=== PATIENT | male | born 1940 | race African-American/Black ===

== ENCOUNTER → 2016-12-17 | Outpatient (CLI) | payer MEDICARE, OTHER ==
--- NOTE | 2016-12-17 18:49 | XCELERA REPORT ---
[address] [address] Lower Extremity Venous Evaluation Name: EMIGDIO VERA Age: 76 yrs Gender: Male : 1940 Patient Status: Outpatient Patient Location: Study Date: 12/17/2016 04:28 PM Procedure: Color flow and duplex imaging bilaterally of the veins of the lower extremities as well as the Common Femoral veins. Reason For Study: M79.06 M79.89 BLE Ordering Physician: YVONNE BARON Performed By: Ania Ryan Right Sided Venous Evaluation Normal vessel filling wall to wall, compression and augmentation as well as Colour flow down to the infrageniculate veins. Left Sided Venous Evaluation Normal vessel filling wall to wall, compression and augmentation as well as Colour flow down to the infrageniculate veins. Interpretation Summary No duplex evidence of DVT or obstruction in the bilateral lower extremities. : YVONNE BARON > Gordy Capellan
== END ==
LOC: SP 15:57
PROVIDERS: ATTEND Internal Medicine Medical Oncology
DX: M79.606 Pain in leg, unspecified (principal); M79.89 Other specified soft tissue disorders
CPT/HCPCS: 93970

== ENCOUNTER → 2017-01-26 | Outpatient (CLI) | payer MEDICARE, OTHER ==
[2017-01-26 16:24] LABS: ANION GAP 15 (5-19); BLOOD UREA NITROGEN 13 mg/dL (7-20); CALCIUM 9.1 mg/dL (8.4-10.2); CARBON DIOXIDE 23 mmol/L (22-30); CHLORIDE 109 mmol/L (98-107); CREATININE RESULT 0.97 mg/dL (0.52-1.25); GLUCOSE 128 mg/dL (75-110); POTASSIUM 4.6 mmol/L (3.6-5.0)
== END ==
LOC: OD 15:03
PROVIDERS: ATTEND Internal Medicine Geriatric Medicine
DX: R60.0 Localized edema (principal)
CPT/HCPCS: 36415; 80048

== ENCOUNTER 2017-06-22 18:34 | Inpatient (IN) | payer MEDICARE, OTHER ==
[2017-06-22 19:21] LABS: VENOUS BLOOD BASE EXCESS 0.1 mmol/L; VENOUS BLOOD HCO3 26.1 mmol/L (20-32); VENOUS BLOOD PCO2 48.6 mmHg (35-63); VENOUS BLOOD PH 7.35 (7.30-7.42)
[2017-06-22 19:27] LABS: HEMATOCRIT 25.8 % (37.9-51.0); HGB HCT DIFFERENCE -1.8; MEAN CORPUSCULAR HEMOGLOBIN 26.6 pg (27.0-33.4); MEAN CORPUSCULAR HGB CONC 31.1 g/dL (32.0-36.0); MEAN CORPUSCULAR VOLUME 86 fl (80-97); RED BLOOD COUNT 3.02 10^6/uL (4.35-5.55); RED CELL DISTRIBUTION WIDTH 24.4 % (11.5-14.0)
[2017-06-22 19:36] LABS: ALANINE AMINOTRANSFERASE 18 U/L (21-72); ALBUMIN 3.4 g/dL (3.5-5.0); ALKALINE PHOSPHATASE 816 U/L (38-126); ANION GAP 15 (5-19); ASPARTATE AMINO TRANSFERASE 28 U/L (17-59); BILIRUBIN,DIRECT 0.5 mg/dL (0.0-0.4); BILIRUBIN,TOTAL 0.6 mg/dL (0.2-1.3); BLOOD UREA NITROGEN 38 mg/dL (7-20); CALCIUM 8.5 mg/dL (8.4-10.2); CARBON DIOXIDE 24 mmol/L (22-30); CHLORIDE 106 mmol/L (98-107); CREATININE RESULT 1.68 mg/dL (0.52-1.25); GLUCOSE 190 mg/dL (75-110); POTASSIUM 4.7 mmol/L (3.6-5.0); SODIUM 145.2 mmol/L (137-145); TOTAL PROTEIN 6.8 g/dL (6.3-8.2)
[2017-06-22] MEDS ORDERED: NORMAL SALINE 1000 ML 1,000 ML IV ONE ×2 (19:38→23:15)
[2017-06-22 19:48] LABS: BASOPHILS % (MANUAL) 0 % (0-2); EOSINOPHILS % (MANUAL) 0 % (0-6); LYMPHOCYTES % (MANUAL) 39 % (13-45); NUCLEATED RED BLOOD CELLS 4 /100 WBC (0); TOTAL CELLS COUNTED 100
[2017-06-22 19:50] LABS: ANISOCYTOSIS 2+; BURR CELLS SLIGHT; HYPOCHROMASIA SLIGHT; MAGNESIUM 3.2 mg/dL (1.6-2.3); OVALOCYTES SLIGHT; PHOSPHORUS 4.7 mg/dL (2.5-4.5); POIKILOCYTOSIS 2+; POLYCHROMASIA SLIGHT; TEAR DROP CELLS 1+
--- NOTE | 2017-06-22 19:51 | ER Document Report ---
ED General - General Chief Complaint: Altered Mental Status Stated Complaint: WEAKNESS Time Seen by Provider: 06/22/17 19:10 Mode of Arrival: Stretcher Information source: Patient, Relative Cannot obtain history due to: Dementia TRAVEL OUTSIDE OF THE [place] 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 EMS gave the patient 5 mg of Haldol IM And he calmed down appropriately. Initially the patient's blood pressure was 120 systolic, But he arrived with a systolic in the 80s. Patient is alert and interactive on Initial evaluation and is cooperative. Per pt's [place] [phone], pt has a no hx of Afib. Pt is working with [facility] [phone] Dr. Elsa Stiles Pt is very hard of hearing. Pt was driving as recent as May 27, 2017. Pt has had recent constipation. - Related Data Allergies/Adverse Reactions: No Known Allergies Allergy (Unverified 10/08/15 19:40) Past Medical History - General Information source: Patient, Relative, Emergency Med Personnel Cannot obtain history due to: Altered mental status - Social History Smoking Status: Never Smoker Frequency of alcohol use: None Drug Abuse: None Lives with: Family Family History: Reviewed & Not Pertinent - Past Medical History Cardiac Medical History: Reports: Hx Hypertension Malignancy Medical History: Reports Hx Prostate Cancer - metastasized into bone Review of Systems - Review of Systems Notes: REVIEW OF SYSTEMS: CONSTITUTIONAL : Denies fever, chills, or sweats. Denies recent illness. EENT: Denies eye, ear, throat, or mouth pain or symptoms. Denies nasal or sinus congestion or discharge. Denies throat, tongue, or mouth swelling or difficulty swallowing. CARDIOVASCULAR: Denies chest pain. Denies palpitations or racing or irregular heart beat. Denies ankle edema. RESPIRATORY: Denies cough, cold, or chest congestion. Denies shortness of breath, difficulty breathing, or wheezing. GASTROINTESTINAL: Denies abdominal pain or distention. Denies nausea, vomiting , or diarrhea. Denies blood in vomitus, stools, or per rectum. Denies black, tarry stools. GENITOURINARY: Denies difficulty urinating, painful urination, burning, frequency, blood in urine, or discharge. MUSCULOSKELETAL: Denies back or neck pain or stiffness. Denies joint pain or swelling. SKIN: Denies rash, lesions or sores. HEMATOLOGIC : Denies easy bruising or bleeding. LYMPHATIC: Denies swollen, enlarged glands. NEUROLOGICAL: Denies passing out or loss of consciousness. Denies dizziness or lightheadedness. Denies headache. Denies weakness or paralysis or loss of use of either side. Denies problems with gait or speech. Denies sensory loss, numbness, or tingling. Denies seizures. PSYCHIATRIC: Denies anxiety or stress. Denies depression, suicidal ideation, or homicidal ideation. ALL OTHER SYSTEMS REVIEWED AND NEGATIVE. Dictation was performed using Dealo voice recognition software Physical Exam - Vital signs Vitals: Temp Pulse Resp BP Pulse Ox 97.7 F 124 H 20 78/58 L 98 06/22/17 18:48 06/22/17 18:48 06/22/17 18:48 06/22/17 18:48 06/22/17 18:48 - Notes Notes: PHYSICAL EXAMINATION: GENERAL: no acute distress. Patient is somewhat somnolent after receiving Haldol by EMS in route. HEAD: Atraumatic, normocephalic. EYES: Pupils equal round and reactive to light, extraocular movements intact, sclera anicteric, conjunctiva are normal. ENT: Nares patent, oropharynx clear without exudates. Dry mucous membranes. NECK: Normal range of motion, supple without lymphadenopathy LUNGS: Breath sounds clear to auscultation bilaterally and equal. No wheezes rales or rhonchi. HEART: Irregular rhythm with tachycardic rate of 115 average. There is a 1/6 systolic ejection murmur best auscultated over the apex. ABDOMEN: Soft, nontender, nondistended abdomen. No guarding, no rebound. No masses appreciated. Musculoskeletal: Normal range of motion. No cyanosis. 2+ bilateral lower extremity edema. NEUROLOGICAL: Cranial nerves grossly intact. Normal sensory, motor exams no unilateral weakness or numbness noted. Patient is extremely hard of hearing chronically, but can hear better on the right ear. He knows he is in the hospital and his name and knows the year. It is unclear if the patient is answering questions inappropriately at times due to his difficulty hearing or somnolence after Haldol. PSYCH: Somewhat flat affect. SKIN: Warm, Dry, normal turgor, no rashes or lesions noted. No skin breakdown noted. Course - Re-evaluation Re-evalutation: 06/22/17 23:49 Patient initially was hypotensive with blood pressure in the 80s systolic with atrial fibrillation rate averaging about 115. Patient was given normal saline bolus 1 L and the blood pressure recovered up to 112 systolic with a pulse rate averaging close to 110. Patient denied any complaint of pain. Chest x-ray showed no obvious evidence for congestive heart failure. Head CT showed no obvious evidence for acute intracranial Process. CT and x-ray studies did show significant bony metastatic disease. Patient had evidence for UTI on a catheterized urine specimen. Urine culture was obtained and the patient was given IV Rocephin. Guaiac was obtained and patient was heme-negative. Patient's anemia appears chronic and consistent with previous value with prior hemoglobin 8.5. Discussion was undertaken with the hospice nurse and with the family at length. The family felt unstable with the patient coming home given his previous agitation and wanted him watched in the hospital until this was under control. Likewise, hospice was concerned about the urinary tract infection and the patient's new onset of atrial fibrillation and his agitation. There was also a question raised that the patient did not have a DNR, even though he was working with hospice. I spoke with the family and the stated that the patient was to have CPR and to be shocked and intubated if he went into cardiac arrest. I spoke with the patient's oncologist Dr. Jones, who has followed the patient consistently since his diagnosis of prostate cancer. She stated that the patient had made it clear on several occasions that he did not want his family involved in his care, and he will consistently refused chemotherapy options. When I discussed this with the patient's , she stated she did not believe this. This will need to be sorted over in the morning and the DNR status needs to be clarified. - Vital Signs Vital signs: Temp Pulse Resp BP Pulse Ox 97.7 F 124 H 10 L 102/63 100 06/22/17 18:48 06/22/17 18:48 06/22/17 23:01 06/22/17 23:00 06/22/17 23:01 - Laboratory Result Diagrams: 06/22/17 19:05 06/22/17 19:05 Laboratory results interpreted by me: 06/22/17 06/22/17 06/22/17 19:05 19:05 19:05 RBC 3.02 L Hgb 8.0 L Hct 25.8 L MCH 26.6 L MCHC 31.1 L RDW 24.4 H PT 18.0 H Sodium 145.2 H BUN 38 H Creatinine 1.68 H Est GFR ( Amer) 48 L Est GFR (Non-Af Amer) 40 L Glucose 190 H POC Glucose Phosphorus Magnesium Direct Bilirubin 0.5 H ALT 18 L Alkaline Phosphatase 816 H NT-Pro-B Natriuret Pep Albumin 3.4 L Urine Protein Urine Blood Ur Leukocyte Esterase 06/22/17 06/22/17 06/22/17 19:05 19:05 19:14 RBC Hgb Hct MCH MCHC RDW PT Sodium BUN Creatinine Est GFR ( Amer) Est GFR (Non-Af Amer) Glucose POC Glucose 193 H Phosphorus 4.7 H Magnesium 3.2 H Direct Bilirubin ALT Alkaline Phosphatase NT-Pro-B Natriuret Pep 1740 H Albumin Urine Protein Urine Blood Ur Leukocyte Esterase 06/22/17 19:48 RBC Hgb Hct MCH MCHC RDW PT Sodium BUN Creatinine Est GFR ( Amer) Est GFR (Non-Af Amer) Glucose POC Glucose Phosphorus Magnesium Direct Bilirubin ALT Alkaline Phosphatase NT-Pro-B Natriuret Pep Albumin Urine Protein 30 H Urine Blood LARGE H Ur Leukocyte Esterase MODERATE H - EKG Interpretation by Me Additional EKG results interpreted by me: 06/22/17 23:48 EKG as interpreted by me showed atrial fibrillation with somewhat controlled ventricular response rate at 115. There is no old EKG available for comparison. There is no obvious evidence for acute MA or ischemia noted. Critical Care Note - Critical Care Note Total time excluding time spent on procedures (mins): 82 Discharge - Discharge Clinical Impression: Agitation, Prostate cancer metastatic to bone, Renal insufficiency Atrial fibrillation Qualifiers: Atrial fibrillation type: unspecified Qualified Code(s): I48.91 - Unspecified atrial fibrillation Urinary tract infection Qualifiers: Urinary tract infection type: acute cystitis Hematuria presence: with hematuria Qualified Code(s): N30.01 - Acute cystitis with hematuria Altered mental status Qualifiers: Altered mental status type: transient alteration of awareness Qualified Code(s) : R40.4 - Transient alteration of awareness Anemia Qualifiers: Anemia type: unspecified type Qualified Code(s): D64.9 - Anemia, unspecified Hypotension Qualifiers: Hypotension type: other hypotension type Qualified Code(s): I95.89 - Other hypotension Constipation Qualifiers: Constipation type: other constipation type Qualified Code(s): K59.09 - Other constipation Condition: Stable Disposition: ADMITTED OBSERVATION Admitting Provider: Hospitalist Unit Admitted: Telemetry Referrals: ANAND ZARCO MD [Primary Care Provider] - Follow up as needed
--- NOTE | 2017-06-22 20:08 | RADIOLOGY REPORT (SQ) ---
EXAM DESCRIPTION: CHEST SINGLE VIEW COMPLETED DATE/TIME: 06/22/2017 8:01 pm REASON FOR STUDY: Atrial fibrillation COMPARISON: 2013 EXAM PARAMETERS: NUMBER OF VIEWS: One view. TECHNIQUE: Single frontal radiographic view of the chest acquired. RADIATION DOSE: NA LIMITATIONS: None. FINDINGS: LUNGS AND PLEURA: No opacities, masses or pneumothorax. No pleural effusion. MEDIASTINUM AND HILAR STRUCTURES: No masses. Contour normal. HEART AND VASCULAR STRUCTURES: Heart normal in size. Normal vasculature. BONES: Extensive bony metastatic disease. HARDWARE: None in the chest. OTHER: No other significant finding. IMPRESSION: No acute findings. Extensive bony metastatic disease. TECHNICAL DOCUMENTATION: JOB ID: [id number]
[2017-06-22 20:11] LABS: APPEARANCE,URINE CLOUDY; BILIRUBIN,URINE NEGATIVE (NEGATIVE); GLUCOSE, URINE NEGATIVE (NEGATIVE); KETONES,URINE NEGATIVE (NEGATIVE); LEUKOCYTE ESTERASE,URINE MODERATE (NEGATIVE); NITRITE,URINE NEGATIVE (NEGATIVE); PROTEIN,URINE 30 mg/dL (NEGATIVE); URINE SPECIFIC GRAVITY 1.011; UROBILINOGEN,URINE NEGATIVE mg/dL (<2.0)
--- NOTE | 2017-06-22 20:17 | RADIOLOGY REPORT (SQ) ---
EXAM DESCRIPTION: CT HEAD WITHOUT COMPLETED DATE/TIME: 06/22/2017 8:06 pm REASON FOR STUDY: hx metastatic prostate cancer, altered mental sta COMPARISON: None. TECHNIQUE: Axial images acquired through the brain without intravenous contrast. Images reviewed wi th bone, brain and subdural windows. Images stored on PACS. All CT scanners at this facility use dose modulation, iterative reconstruction, and/or weight based d osing when appropriate to reduce radiation dose to as low as reasonably achievable (ALARA). [facility]: Dose Right [facility]: CareDose [facility]: Dose Right [facility]: Teradose 4D [facility]: [employer] RADIATION DOSE: Up-to-date CT equipment and radiation dose reduction techniques were employed. CTDIv ol: 64.6 mGy. DLP: 1163 mGy-cm. mGy. LIMITATIONS: None. FINDINGS: VENTRICLES: Normal size and contour. CEREBRUM: No masses. No hemorrhage. No midline shift. No evidence for acute infarction. Normal gra y/white matter differentiation. No areas of low density in the white matter. CEREBELLUM: No masses. No hemorrhage. No alteration of density. No evidence for acute infarction. EXTRAAXIAL SPACES: No fluid collections. No masses. ORBITS AND GLOBE: No intra- or extraconal masses. Normal contour of globe without masses. CALVARIUM: Extensive bony metastatic disease. PARANASAL SINUSES: Extensive acute and chronic sinus disease sparing the maxillary sinuses SOFT TISSUES: No mass or hematoma. OTHER: No other significant finding. IMPRESSION: No acute intracranial process. Bony metastatic disease. Extensive acute and chronic sinus disease sparing the maxillary sinuses. COMMENT: Quality ID # [id number]: Final reports with documentation of one or more dose reduction techniques (e.g., Automated exposure control, adjustment of the mA and/or kV according to patient size, use of iterative reconstruction technique) TECHNICAL DOCUMENTATION: JOB ID: [id number] [employer]- All Rights Reserved
[2017-06-22 20:26] LABS: THYROID STIMULATING HORMONE 4.33 uIU/mL (0.47-4.68)
[2017-06-22] MEDS ORDERED: CEFTRIAXONE INJ 1000 MG VIAL IV ONE (20:57)
[2017-06-22] MEDS ORDERED: IPRATROPIUM/ALBUTEROL 0.5-2.5 MG/3 ML AMPUL NEB PRN (22:52)
[2017-06-22] MEDS ORDERED: MAG HYDROX/AL HYDROX/SIMETH SUSP 30 ML UDCUP PO PRN (22:52)
[2017-06-22] MEDS ORDERED: ONDANSETRON HCL INJ/PF 4 MG/2 ML SDV IV PRN (22:52)
[2017-06-22] MEDS ORDERED: METOPROLOL TARTRATE PF/INJ 5 MG/5 ML SDV IV ONE (23:15)
[2017-06-22] MEDS ORDERED: LACTULOSE SYRUP 20 GM/30 ML UDCUP PO ONE (23:15)
--- NOTE | 2017-06-22 23:19 | EKG REPORT ---
SEVERITY:- ABNORMAL ECG - ATRIAL FLUTTER, A-RATE [address] DEPRESSION, INFERIOR LEADS BORDERLINE PROLONGED QT INTERVAL : Confirmed by: Bertha Nina 22-Jun-2017 23:18:47
--- NOTE | 2017-06-23 03:50 | PDOC H&P ---
History of Present Illness Admission Date/PCP: 06/22/17 22:52 ANAND HAROLDO Patient complains of: Altered mental status History of Present Illness: EMIGDIO VERA is a 77 year old male with a past medical history of prostate cancer with widespread metastasis receiving home hospice care who became agitated and hostile with caregivers. EMS was called administrating 5 mg of Haldol IM resulting in sedation. He was brought to the emergency room for evaluation. His blood pressure is 80 systolic in A. fib with RVR. and is unable to provide history and his resends hospice and CODE STATUS. He receives a bolus of normal saline and started on IV Cardizem and referred to the hospitalist for admission. Family stated he has denied pain but complained of constipation prior to agitation. Hospice caregiver is Yenifer at [phone], patient's oncologist Dr. Jones. Patient's Fl[place] [phone]. Past Medical History Cardiac Medical History: Reports: Hypertension Malignancy Medical History: Reports: Other - Prostate cancer Psychiatric Medical History: Denies: Depression Social History Information Source: [facility] Records Lives with: Family Smoking Status: Never Smoker Frequency of Alcohol Use: None Hx Recreational Drug Use: No Hx Prescription Drug Abuse: No - Advance Directive Resuscitation Status: Full Code Family History Family History: Reviewed & Not Pertinent Parental Family History Reviewed: Yes - Unobtainable Children Family History Reviewed: Yes - Unobtainable Sibling(s) Family History Reviewed.: Yes - Unobtainable Medication/Allergy Allergies/Adverse Reactions: No Known Allergies Allergy (Unverified 10/08/15 19:40) Review of Systems ROS unobtainable: Due to mental status Physical Exam Vital Signs: Temp Pulse Resp BP Pulse Ox 97.7 F 74 16 141/69 H 100 06/23/17 00:34 06/23/17 02:00 06/23/17 00:34 06/23/17 00:34 06/23/17 00:34 Intake & Output 06/21/17 06/22/17 06/23/17 11:59 11:59 11:59 Weight 73.1 kg General appearance: PRESENT: no acute distress, disheveled, thin, other - Chronically ill-appearing, pale, temporal wasting and cachexia Head exam: PRESENT: atraumatic, normocephalic Eye exam: PRESENT: conjunctiva pink, EOMI, PERRLA. ABSENT: scleral icterus Ear exam: PRESENT: normal external ear exam Mouth exam: PRESENT: moist, tongue midline Neck exam: ABSENT: carotid bruit, JVD, lymphadenopathy, thyromegaly Respiratory exam: PRESENT: clear to auscultation stone, crackles, decreased breath sounds. ABSENT: rales, rhonchi, wheezes Cardiovascular exam: PRESENT: irregular rhythm. ABSENT: diastolic murmur, rubs , systolic murmur Pulses: PRESENT: normal dorsalis pedis pul Vascular exam: PRESENT: normal capillary refill GI/Abdominal exam: PRESENT: normal bowel sounds, soft, other - Left lower quadrant pain no guarding. ABSENT: distended, guarding, mass, organolmegaly, rebound, tenderness Rectal exam: PRESENT: deferred Extremities exam: PRESENT: full ROM. ABSENT: calf tenderness, clubbing, pedal edema Neurological exam: PRESENT: alert, altered, awake, oriented to person, oriented to place, oriented to time, oriented to situation, CN II-XII grossly intact. ABSENT: motor sensory deficit Psychiatric exam: PRESENT: appropriate affect, normal mood. ABSENT: homicidal ideation, suicidal ideation Skin exam: PRESENT: dry, intact, warm. ABSENT: cyanosis, rash Results Impressions: Chest X-Ray 06/22/17 19:41 IMPRESSION: No acute findings. Extensive bony metastatic disease. Head CT 06/22/17 19:41 IMPRESSION: No acute intracranial process. Bony metastatic disease. Extensive acute and chronic sinus disease sparing the maxillary sinuses. Assessment & Plan - Diagnosis (1) Atrial fibrillation Qualifiers: Atrial fibrillation type: unspecified Qualified Code(s): I48.91 - Unspecified atrial fibrillation Is this a current diagnosis for this admission?: Yes Plan: IV Cardizem transition to p.o. when tolerated, not a candidate for anticoagulation given widespread metastatic disease on hospice. (2) Encephalopathy acute Is this a current diagnosis for this admission?: Yes Plan: Unclear cause possibly secondary to opiate or benzodiazepine withdrawal. Supportive measures (3) Constipation Qualifiers: Constipation type: other constipation type Qualified Code(s): K59.09 - Other constipation Is this a current diagnosis for this admission?: Yes Plan: Lactulose, enema and bowel regiment (4) Prostate cancer metastatic to bone Is this a current diagnosis for this admission?: Yes Plan: ER consulted patient's oncologist Dr. Jones strongly recommending DNR. Supportive measures, family meeting with hospice (5) Anemia Qualifiers: Anemia type: unspecified type Qualified Code(s): D64.9 - Anemia, unspecified Is this a current diagnosis for this admission?: Yes Plan: Secondary to chronic illness. - Time Time Spent: 50 to 70 Minutes - Inpatient Certification Medical Necessity: Need Close Monitoring Due to Risk of Patient Decompensation
[2017-06-23] MEDS: HEPARIN SOD (PORCINE) 5,000 UNIT/ML 1 ML SYRINGE SUBCUT SCH ×3 (05:08→21:45)
[2017-06-23 05:47] LABS: HEMATOCRIT 24.1 % (37.9-51.0); HGB HCT DIFFERENCE -1.3; MEAN CORPUSCULAR HEMOGLOBIN 27.1 pg (27.0-33.4); MEAN CORPUSCULAR HGB CONC 31.7 g/dL (32.0-36.0); MEAN CORPUSCULAR VOLUME 86 fl (80-97); RED BLOOD COUNT 2.82 10^6/uL (4.35-5.55); RED CELL DISTRIBUTION WIDTH 23.7 % (11.5-14.0); WHITE BLOOD COUNT 7.1 10^3/uL (4.0-10.5)
[2017-06-23 05:51] LABS: ANION GAP 11 (5-19); BLOOD UREA NITROGEN 35 mg/dL (7-20); CARBON DIOXIDE 24 mmol/L (22-30); CHLORIDE 113 mmol/L (98-107); CREATININE RESULT 1.31 mg/dL (0.52-1.25); GLUCOSE 92 mg/dL (75-110); POTASSIUM 4.4 mmol/L (3.6-5.0); SODIUM 148.3 mmol/L (137-145)
[2017-06-23 06:25] LABS: BASOPHILS % (MANUAL) 0 % (0-2); EOSINOPHILS % (MANUAL) 0 % (0-6); LYMPHOCYTES % (MANUAL) 22 % (13-45); TOTAL CELLS COUNTED 100
[2017-06-23 06:27] LABS: ANISOCYTOSIS 3+; HYPOCHROMASIA SLIGHT; POLYCHROMASIA SLIGHT; SCHISTOCYTES SLIGHT; TEAR DROP CELLS SLIGHT; TOXIC GRANULATION SLIGHT
--- NOTE | 2017-06-23 08:57 | Physician Advisory Note ---
Physician Advisor ProgressNote .: Pursuant to the plan for [facility], I have reviewed the medical record for this patient. Physician Advisor Statement: Please consider documentin. "Acute Kidney Injury, likely due to ____" [intravascular volume depletion? - baseline Cr 0.97] 2. ? - "Acute hypernatremia, likely due to ____" [intravascular volume depletion?] 3. 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 Medical necessity/status - see below. Status: Medicare pt, age 77, w/metastatic prostate CA. - Appropriately brought in as Outpt Obs for acute encephalopathy, new Afib w/ RVR, SARA, hypotension. - Given a 2nd IVF NS bolus, prn IV Ativan, lactulose, IV metoprolol x1, O2, cultures, po clears, [place] consult. If not sufficiently improved today for d/c, please document clinical reasons pt not safe for d/c - may then be appropriate for Inpatient status. [ "___ not back to baseline", "I am concerned about ____", ...] Thanks! CK
--- NOTE | 2017-06-23 09:34 | PDOC PROGRESS REPORT ---
Subjective Progress Note for:: 06/23/17 Subjective:: The patient is a 77-year-old -[place] gentleman with known metastatic prostate cancer. He has been residing at home with his and has been on hospice services. His oncologist is Dr. Jones. He presented to the emergency room with a several day history of altered mental status. The patient did become quite combative at home and his temporarily rescinded hospice and brought him to the hospital as she could not manage him at home. In the emergency room the patient was found to have a septic picture with hypotension, tachycardia, encephalopathy and evidence of an infection a urinary tract infection. The emergency room physician gave him 1 dose of 1 g of Rocephin. This morning when I arrived on the floor I was notified by the nursing staff that the patient had one out of 2 blood cultures that were positive for gram-negative rods. I spoke to the patient's on the phone this morning. She states that her wishes are to treat his underlying infection which is likely the cause of his encephalopathy. Once he is back to his baseline she would like to once again take him home with home hospice services. Today when I saw the patient he was asleep in the bed. He awoke quite easily. He was alert and oriented 1 and did not answer questions appropriately. According to the patient's he usually does not have any confusion. A review of systems could not be obtained. Physical Exam Vital Signs: Temp Pulse Resp BP Pulse Ox 98.5 F 80 16 123/58 L 100 06/23/17 07:15 06/23/17 07:15 06/23/17 07:15 06/23/17 07:15 06/23/17 07:15 Intake & Output 06/22/17 06/23/17 06/24/17 06:59 06:59 06:59 Intake Total 1955 Output Total 375 Balance 1580 Weight 72.1 kg General appearance: PRESENT: disheveled, hard of hearing. ABSENT: severe distress Head exam: PRESENT: atraumatic, normocephalic Mouth exam: PRESENT: dry mucosa Neck exam: ABSENT: carotid bruit, tenderness, thyromegaly Respiratory exam: PRESENT: clear to auscultation stone. ABSENT: accessory muscle use, crackles, rhonchi, wheezes Cardiovascular exam: PRESENT: RRR, +S1, +S2. ABSENT: diastolic murmur, systolic murmur GI/Abdominal exam: PRESENT: soft. ABSENT: guarding, rebound, rigid, tenderness Rectal exam: ABSENT: deferred Extremities exam: ABSENT: clubbing, pedal edema, tenderness Neurological exam: PRESENT: alert, awake, oriented to person. ABSENT: altered, oriented to time, oriented to situation Skin exam: PRESENT: dry, intact, warm Results Laboratory Results: 06/23/17 05:02 06/23/17 05:02 06/23/17 06/23/17 05:02 05:02 WBC 7.1 RBC 2.82 L Hgb 7.6 L Hct 24.1 L MCV 86 MCH 27.1 MCHC 31.7 L RDW 23.7 H Plt Count 145 L Seg Neutrophils % Not Reportable Lymphocytes % Not Reportable Monocytes % Not Reportable Eosinophils % Not Reportable Basophils % Not Reportable Absolute Neutrophils Not Reportable Absolute Lymphocytes Not Reportable Absolute Monocytes Not Reportable Absolute Eosinophils Not Reportable Absolute Basophils Not Reportable Sodium 148.3 H Potassium 4.4 Chloride 113 H Carbon Dioxide 24 Anion Gap 11 BUN 35 H Creatinine 1.31 H Est GFR ( Amer) > 60 Est GFR (Non-Af Amer) 53 L Glucose 92 Calcium 8.0 L Impressions: Chest X-Ray 06/22/17 19:41 IMPRESSION: No acute findings. Extensive bony metastatic disease. Head CT 06/22/17 19:41 IMPRESSION: No acute intracranial process. Bony metastatic disease. Extensive acute and chronic sinus disease sparing the maxillary sinuses. Assessment & Plan - Diagnosis (1) Sepsis Is this a current diagnosis for this admission?: Yes Plan: The patient had evidence of sepsis at the time of admission. He was quite hypotensive and tachycardic. He did not have a white blood cell count or fever however he is likely somewhat immunosuppressed from his underlying malignancy. He was encephalopathic with evidence of an acute kidney injury. He had evidence of a urinary tract infection at the time of admission and this morning has 1 out of 2 blood cultures positive for gram-negative rods. I am going to place the patient on some gentle hydration today. Treatment will be outlined below. (2) Gram-negative bacteremia Is this a current diagnosis for this admission?: Yes Plan: At this point the patient has 1 out of 2 blood cultures positive for gram- negative rods. Going to place the patient on ceftriaxone 2 g daily. He received 1 g of ceftriaxone in the emergency department. This is likely from a urinary source. We will follow-up with final culture results. Tomorrow we will repeat blood cultures. (3) Urinary tract infection Qualifiers: Urinary tract infection type: acute cystitis Hematuria presence: with hematuria Qualified Code(s): N30.01 - Acute cystitis with hematuria Is this a current diagnosis for this admission?: Yes Plan: The patient had evidence of a urinary tract infection at the time of admission. So far his culture is negative but he just was admitted late last night. The patient will be on ceftriaxone 2 g daily. This is the first full day of treatment. (4) Atrial fibrillation with rapid ventricular response Is this a current diagnosis for this admission?: Yes Plan: This is a new diagnosis for the patient. He converted to a sinus rhythm after a dose of IV Cardizem per the H&P. In reviewing the chart it looks like the patient received IV metoprolol. I am not exactly sure whether he received Cardizem or not. In any event he is in a sinus rhythm and rate controlled at this point. We will keep him on telemetry monitoring. This is likely due to sepsis and acute illness. (5) Prostate cancer metastatic to bone Is this a current diagnosis for this admission?: Yes Plan: I have spoken at length with the patient's . She would like to keep him home with home hospice services. She is temporarily rescinded this to bring him to the hospital. She would like to treat his underlying infection and when the patient is well and back to his baseline mentation she would like to once again take him home with home hospice services. This seems like a reasonable plan for now. He does not look like he is actively dying and I do not believe he needs to go to an inpatient hospice situation at this point. His oncologist has been consulted and we will see if she agrees with this plan. I will discuss further with her later on today. (6) Acute kidney injury Plan: The patient received several IV fluid boluses last night. His creatinine is improved this morning. This is likely due to bacteremia and poor p.o. intake. We will see with the patient's creatinine is in the morning. He was quite hypertensive at the time of admission. (7) Hypernatremia Plan: When he first presented to the hospital he had quite mild hypernatremia. This is risen somewhat this morning. I am going to place the patient on IV fluids today. He was given normal saline boluses overnight. He looks quite dry on exam. I am going to place him on half normal saline today and will check a chemistry panel in the morning. (8) Anemia Qualifiers: Anemia type: unspecified type Qualified Code(s): D64.9 - Anemia, unspecified Is this a current diagnosis for this admission?: Yes Plan: The patient has had a drop in his hemoglobin since the time of admission. His anemia is multifactorial likely secondary to his underlying malignancy as well as hemodilution. (9) Hyperglycemia Plan: Likely reactive to acute illness. (10) Constipation Qualifiers: Constipation type: other constipation type Qualified Code(s): K59.09 - Other constipation Is this a current diagnosis for this admission?: Yes Plan: The patient was complaining of constipation prior to coming into the hospital. He was given 1 dose of lactulose last night. I am going to place him on a bowel regimen with Colace and MiraLAX today. Hopefully he can have a good bowel movement soon. (11) Do not resuscitate Plan: At this point the patient remains a DO NOT RESUSCITATE. We will not perform chest compressions or intubate the patient. The patient's is requested that we treat his underlying infection. Once he is back to his baseline mentation and stable he will be discharged home on home hospice services. - Time Time Spent with patient: 35 or more minutes Disposition: When the patient is stable for discharge he will be discharged back home with home hospice services. At this point he is still acutely encephalopathic and has evidence of bacteremia likely from a urinary source. He is requiring parenteral antibiotics. We will follow up with culture results and when the patient is back to his baseline mentation and stable he will be discharged back home with home hospice services. - Inpatient Certification Medical Necessity: Need For IV Fluids, Need for IV Antibiotics
[2017-06-23] MEDS: CARVEDILOL 6.25 MG TABLET PO SCH ×2 (09:55→21:44)
[2017-06-23] MEDS: ARIPIPRAZOLE 5 MG TABLET PO SCH (09:55)
[2017-06-23] MEDS: LEVOTHYROXINE SODIUM 0.025 MG TABLET PO SCH (09:55)
[2017-06-23] MEDS: CEFTRIAXONE 2 GM/D5W RTU 2 GM/50 ML RTUPB IV SCH (09:58)
[2017-06-23] MEDS: 1/2 NORMAL SALINE 1,000 ML IV SCH (09:59)
[2017-06-23] MEDS: LORAZEPAM INJ 2 MG/1 ML VIAL IV PRN ×2 (12:51→21:44)
--- NOTE | 2017-06-23 14:48 | Physician Advisory Note ---
Physician Advisor ProgressNote .: [facility] I have reviewed the medical record for this patient. Physician Advisor Statement: Nicely documented reasoning & co-morbidities, Vero! 1. Please state either "sepsis" or "bacteremia", but not both. Coding directions indicate "bacteremia" is a mild illness/"symptom dx", while "sepsis" is a severe illness. Documenting both means honing machine set up operator tool has to query "which was it?" - If you believe pt had sepsis on adm, just state "likely GN sepsis, POA, due to UTI". [Link bacteria type to sepsis when possible.) 2. "suspected protein-calorie malnutrition [state mild, mod, or severe] with BMI 22.8, ____[?wt loss, ?appetite loss, ]" - Cachexia, temporal wasting already documented. [if possible, give specifics on intake, wt loss, loss of SQ fat & muscle mass, diminished hand vp delivery strength, & clinical importance such as (A) nutritional assessment ordered, (B) modified diet or supplements ordered, (C) additional labs ordered, (D) prolonged wound healing time, (E) delayed infxn clearance] 3. Status: Pt now appropriate to make Inpt status. For other chart reviewers: Sepsis criteria: Pt met Sepsis-3 criteria for dx sepsis, with initial total GCS 14, MAP as low as 64 giving 2 SOFA points alone. - Also had Cr 1.68, though that might have been from intravascular volume depletion. Also had plts drop from 178 to 145 by next AM. R.e. Sepsis-2 criteria: Although no leukocytosis/fever, he had HR 124, RR7, BP 78/58, acute confusion, (+)BC. Lactate was 1.4. Thanks! CK
[2017-06-23] MEDS ORDERED: CEFTRIAXONE 1 GM/D5W RTU 1 GM/50 ML RTUPB IV SCH (18:00)
[2017-06-24] MEDS: 1/2 NORMAL SALINE 1,000 ML IV SCH ×2 (03:05→20:47)
[2017-06-24] MEDS: HEPARIN SOD (PORCINE) 5,000 UNIT/ML 1 ML SYRINGE SUBCUT SCH ×3 (05:04→21:36)
[2017-06-24 08:08] LABS: HEMOGLOBIN 7.6 g/dL (13.5-17.0)
[2017-06-24] MEDS: CARVEDILOL 6.25 MG TABLET PO SCH ×2 (09:40→21:33)
[2017-06-24] MEDS: CEFTRIAXONE 2 GM/D5W RTU 2 GM/50 ML RTUPB IV SCH (09:40)
[2017-06-24] MEDS: LEVOTHYROXINE SODIUM 0.025 MG TABLET PO SCH (09:40)
[2017-06-24] MEDS: ARIPIPRAZOLE 5 MG TABLET PO SCH (09:41)
--- NOTE | 2017-06-24 14:27 | PDOC PROGRESS REPORT ---
Subjective Progress Note for:: 06/24/17 Subjective:: The patient is a 77-year-old -[place] gentleman with known metastatic prostate cancer. He has been residing at home with his and has been on hospice services. His oncologist is Dr. Jones. He presented to the emergency room with a several day history of altered mental status. The patient did become quite combative at home and his brought him to the hospital at the advice of hospice as she could not manage him at home. In the emergency room the patient was found to have a septic picture with hypotension, tachycardia, encephalopathy and evidence of an infection with a possible urinary tract infection. The emergency room physician gave him 1 dose of 1 g of Rocephin. The next morning 1 out of 2 of the patient's blood cultures was positive for gram-negative rods. His Rocephin dose was increased to 2 g daily. It was felt to be from a urinary source. This morning the patient does not fact have a positive urine culture for E. coli. He continues on IV antibiotics. Today when I saw the patient he was asleep in the bed. He was easily arousable. He was alert and oriented 1 and did not answer questions appropriately. According to the patient's he usually has some very mild confusion at home. He is not yet quite back to his baseline but getting close. A review of systems could not be obtained. Physical Exam Vital Signs: Temp Pulse Resp BP Pulse Ox 97.9 F 72 16 146/66 H 100 06/24/17 11:06 06/24/17 11:06 06/24/17 11:06 06/24/17 11:06 06/24/17 11:06 Intake & Output 06/23/17 06/24/17 06/25/17 06:59 06:59 06:59 Intake Total 2901 Output Total 300 Balance 2601 Weight 74.8 kg General appearance: PRESENT: no acute distress, hard of hearing, thin Head exam: PRESENT: atraumatic, other - Bitemporal wasting Mouth exam: PRESENT: moist Respiratory exam: PRESENT: clear to auscultation stone. ABSENT: chest wall tenderness, crackles, rales, rhonchi, wheezes Cardiovascular exam: PRESENT: RRR, +S1, +S2. ABSENT: diastolic murmur, gallop, rubs, systolic murmur GI/Abdominal exam: PRESENT: normal bowel sounds, soft. ABSENT: tenderness Extremities exam: ABSENT: calf tenderness, clubbing, pedal edema Neurological exam: PRESENT: alert. ABSENT: altered Skin exam: PRESENT: dry, warm Results Impressions: Chest X-Ray 06/22/17 19:41 IMPRESSION: No acute findings. Extensive bony metastatic disease. Head CT 06/22/17 19:41 IMPRESSION: No acute intracranial process. Bony metastatic disease. Extensive acute and chronic sinus disease sparing the maxillary sinuses. Assessment & Plan - Diagnosis (1) Sepsis Is this a current diagnosis for this admission?: Yes Plan: The patient had evidence of sepsis at the time of admission. This is a gram- negative sepsis likely due to Ecoli. He has one out of two blood cultures positive for gram negative rods. Urine culture is positive for a pansensitive Ecoli. He was quite hypotensive and tachycardic at the time of admission. He did not have a white blood cell count or fever however he is likely somewhat immunosuppressed from his underlying malignancy. He was encephalopathic with evidence of an acute kidney injury. His sepsis symptoms are improving. Repeat blood cultures will be drawn today. (2) Urinary tract infection Qualifiers: Urinary tract infection type: acute cystitis Hematuria presence: with hematuria Qualified Code(s): N30.01 - Acute cystitis with hematuria Is this a current diagnosis for this admission?: Yes Plan: The patient has an E. coli urinary tract infection which is pansensitive. He was given 1 g of IV Rocephin in the emergency room. Yesterday due to his positive blood cultures his Rocephin was increased to 2 g daily to treat his bacteremia. This is day #2 of treatment. Hopefully after the patient improves he could be transitioned over to an oral regimen in the near future and discharged back home with hospice. (3) Acute metabolic encephalopathy Is this a current diagnosis for this admission?: Yes Plan: The patients encephalopathy is improving. This is likely due to his bacteremia and urinary tract infection. We will continue current IV antibiotics. He has IV Ativan available as needed. (4) Atrial fibrillation with rapid ventricular response Is this a current diagnosis for this admission?: Yes Plan: This is a new diagnosis for the patient. He converted to a sinus rhythm after a dose of IV Cardizem per the H&P. In reviewing the chart it looks like the patient received IV metoprolol. I am not exactly sure whether he received Cardizem or not. In any event he is in a sinus rhythm and rate controlled at this point. We will keep him on telemetry monitoring. This is likely due to sepsis and acute illness. (5) Prostate cancer metastatic to bone Is this a current diagnosis for this admission?: Yes Plan: I have spoken at length with the patient's . She would like to keep him home with home hospice services. She would like to treat his underlying infection and when the patient is well and back to his baseline mentation she would like to once again take him home with home hospice services. I did speak to his hospice agency and they will take him back home his hospice services were never rescinded as they sent him to the hospital. They are in agreement with this plan and he will resume home hospice services at discharge. This seems like a reasonable plan for now. He does not look like he is actively dying and I do not believe he needs to go to an inpatient hospice situation at this point. (6) Acute kidney injury Plan: The patient received several IV fluid boluses last night. His creatinine is improved this morning. This is likely due to bacteremia, urinary tract infection and poor p.o. intake. We will see with the patient's creatinine is in the morning. He was quite hypertensive at the time of admission. (7) Hypernatremia Plan: When he first presented to the hospital he had quite mild hypernatremia. This christen somewhat the next day. The patient is receiving IV fluids and he will have a chemistry panel in the morning. (8) Anemia Qualifiers: Anemia type: unspecified type Qualified Code(s): D64.9 - Anemia, unspecified Is this a current diagnosis for this admission?: Yes Plan: The patient has had a drop in his hemoglobin since the time of admission. His anemia is multifactorial likely secondary to his underlying malignancy as well as hemodilution. Will repeat labs in the morning. (9) Hyperglycemia Plan: Likely reactive to acute illness. (10) Constipation Qualifiers: Constipation type: other constipation type Qualified Code(s): K59.09 - Other constipation Is this a current diagnosis for this admission?: Yes Plan: The patient was complaining of constipation prior to coming into the hospital. He was given 1 dose of lactulose at admission. He has been placed on a bowel regimen with Colace and MiraLAX today. Hopefully he can have a good bowel movement soon. (11) Electrolyte abnormality Plan: The patient has hypermagnesemia and hyperphosphatemia. We will recheck these levels in the morning. Possibly due to his acute kidney injury. - Time Time Spent with patient: 25-34 minutes Anticipated discharge: Hospice - Inpatient Certification Medical Necessity: Need For IV Fluids, Need for IV Antibiotics, Other - Inpatient hospitalization remains necessary. We need the patient's blood cultures to finalize. He had a septic picture at the time of admission and I would like for him to have a couple of days of IV antibiotics. Ultimately he could be transitioned over to an oral regimen when he improves. When he does go home he will resume home hospice services. I have spoken to his hospice agency and they are in agreement with this plan.
[2017-06-24] MEDS ORDERED: DOCUSATE SODIUM 100 MG CAPSULE PO ONE (15:00)
[2017-06-24] MEDS: DOCUSATE SODIUM 100 MG CAPSULE PO SCH (18:03)
[2017-06-25 05:05] LABS: HEMATOCRIT 23.2 % (37.9-51.0); HGB HCT DIFFERENCE -0.7; MEAN CORPUSCULAR HEMOGLOBIN 26.7 pg (27.0-33.4); MEAN CORPUSCULAR HGB CONC 32.2 g/dL (32.0-36.0); MEAN CORPUSCULAR VOLUME 83 fl (80-97); RED CELL DISTRIBUTION WIDTH 23.4 % (11.5-14.0); WHITE BLOOD COUNT 7.6 10^3/uL (4.0-10.5)
[2017-06-25 05:18] LABS: HEMOGLOBIN 7.5 g/dL (13.5-17.0)
[2017-06-25 05:26] LABS: ANION GAP 12 (5-19); BLOOD UREA NITROGEN 13 mg/dL (7-20); CALCIUM 7.9 mg/dL (8.4-10.2); CARBON DIOXIDE 22 mmol/L (22-30); CHLORIDE 111 mmol/L (98-107); CREATININE RESULT 0.79 mg/dL (0.52-1.25); GLUCOSE 108 mg/dL (75-110); MAGNESIUM 2.3 mg/dL (1.6-2.3); POTASSIUM 3.2 mmol/L (3.6-5.0); SODIUM 144.9 mmol/L (137-145)
[2017-06-25 05:31] LABS: BASOPHILS % (MANUAL) 0 % (0-2); EOSINOPHILS % (MANUAL) 0 % (0-6); LYMPHOCYTES % (MANUAL) 29 % (13-45); TOTAL CELLS COUNTED 100
[2017-06-25 05:35] LABS: HYPOCHROMASIA SLIGHT; POLYCHROMASIA SLIGHT
[2017-06-25 05:36] LABS: ANISOCYTOSIS 3+; OVALOCYTES SLIGHT; POIKILOCYTOSIS SLIGHT; TEAR DROP CELLS SLIGHT
[2017-06-25] MEDS: HEPARIN SOD (PORCINE) 5,000 UNIT/ML 1 ML SYRINGE SUBCUT SCH ×3 (05:45→21:35)
[2017-06-25] MEDS: ARIPIPRAZOLE 5 MG TABLET PO SCH (09:05)
[2017-06-25] MEDS: CEFTRIAXONE 2 GM/D5W RTU 2 GM/50 ML RTUPB IV SCH (09:05)
[2017-06-25] MEDS: CARVEDILOL 6.25 MG TABLET PO SCH ×2 (09:05→21:49)
[2017-06-25] MEDS: LEVOTHYROXINE SODIUM 0.025 MG TABLET PO SCH (09:05)
[2017-06-25] MEDS: POLYETHYLENE GLYCOL 3350 POWDER 17 GM/1 PACKET PO SCH (09:08)
[2017-06-25] MEDS: DOCUSATE SODIUM 100 MG CAPSULE PO SCH ×2 (09:08→17:17)
[2017-06-25] MEDS: 1/2 NORMAL SALINE 1,000 ML IV SCH ×2 (09:12→23:01)
--- NOTE | 2017-06-25 10:13 | PDOC PROGRESS REPORT ---
Subjective Progress Note for:: 06/25/17 - Hospital day 2 Subjective:: The patient is a 77-year-old -[place] gentleman with known metastatic prostate cancer. He has been residing at home with his and has been on hospice services. His oncologist is Dr. Jones. He presented to the emergency room June 23, 2017 with a several day history of altered mental status. The patient did become quite combative at home. His brought him to the hospital at the advice of hospice as she could not manage him at home. In the emergency room the patient was found to have a septic picture with hypotension, tachycardia, encephalopathy and evidence of a urinary tract infection. The emergency room physician gave him 1 dose of 1 g of Rocephin. Hospital day number 1, 1 of 2 of the patient's blood cultures was positive for gram-negative rods. His Rocephin dose was increased to 2 g daily. His urine cultures are growing E. coli. Blood cultures are also growing E. coli, pansensitive. Today, he is sleeping but easily arousable. He is alert and oriented x1. He states that he has gout. A review of systems cannot be obtained. Physical Exam Vital Signs: Temp Pulse Resp BP Pulse Ox 98.2 F 61 16 135/63 H 100 06/25/17 07:22 06/25/17 08:04 06/25/17 08:04 06/25/17 07:22 06/25/17 08:04 Intake & Output 06/24/17 06/25/17 06/26/17 06:59 06:59 06:59 Intake Total 2901 2911 Output Total 300 Balance 2601 2911 Weight 74.8 kg General appearance: PRESENT: no acute distress, cooperative, thin Head exam: PRESENT: atraumatic, normocephalic Eye exam: PRESENT: conjunctiva pink, EOMI, PERRLA. ABSENT: scleral icterus Mouth exam: PRESENT: moist, neck supple Neck exam: PRESENT: full ROM. ABSENT: JVD, meningismus Respiratory exam: PRESENT: clear to auscultation stone, symmetrical, unlabored. ABSENT: accessory muscle use Cardiovascular exam: PRESENT: RRR GI/Abdominal exam: PRESENT: hypoactive bowel sounds, soft. ABSENT: tenderness Extremities exam: ABSENT: calf tenderness, joint swelling Musculoskeletal exam: PRESENT: normal inspection Neurological exam: PRESENT: awake, oriented to person, CN II-XII grossly intact Skin exam: PRESENT: dry, intact, warm. ABSENT: cyanosis, rash Results Laboratory Results: 06/25/17 04:16 06/25/17 04:16 06/25/17 06/25/17 04:16 04:16 WBC 7.6 RBC 2.80 L Hgb 7.5 L Hct 23.2 L MCV 83 MCH 26.7 L MCHC 32.2 RDW 23.4 H Plt Count 126 L Seg Neutrophils % Not Reportable Lymphocytes % Not Reportable Monocytes % Not Reportable Eosinophils % Not Reportable Basophils % Not Reportable Absolute Neutrophils Not Reportable Absolute Lymphocytes Not Reportable Absolute Monocytes Not Reportable Absolute Eosinophils Not Reportable Absolute Basophils Not Reportable Sodium 144.9 Potassium 3.2 L Chloride 111 H Carbon Dioxide 22 Anion Gap 12 BUN 13 Creatinine 0.79 Est GFR ( Amer) > 60 Est GFR (Non-Af Amer) > 60 Glucose 108 Calcium 7.9 L Magnesium 2.3 Impressions: Chest X-Ray 06/22/17 19:41 IMPRESSION: No acute findings. Extensive bony metastatic disease. Head CT 06/22/17 19:41 IMPRESSION: No acute intracranial process. Bony metastatic disease. Extensive acute and chronic sinus disease sparing the maxillary sinuses. Assessment & Plan - Diagnosis (1) Acute kidney injury Is this a current diagnosis for this admission?: Yes Plan: At the time of admission, he received several IV fluid boluses. His creatinine improved within 24 hours. His acute kidney injury was likely due to volume depletion in the setting of a urinary tract infection, and decreased oral intake. (2) Acute metabolic encephalopathy Is this a current diagnosis for this admission?: Yes Plan: His encephalopathy is improving. It is likely due to the urinary tract infection, compounded by acute kidney injury, and decreased p.o. intake. (3) Anemia Qualifiers: Anemia type: unspecified type Qualified Code(s): D64.9 - Anemia, unspecified Is this a current diagnosis for this admission?: Yes Plan: His anemia is multifactorial, likely secondary to his underlying malignancy as well as hemodilution. No obvious bleeding. Transfuse if the hemoglobin is less than 7. (4) Atrial fibrillation with rapid ventricular response Is this a current diagnosis for this admission?: Yes Plan: This is a new diagnosis for the patient. He converted to sinus rhythm after a dose of IV metoprolol given at the time of admission. This is most likely due to his acute illness. Continue telemetry monitoring for now. (5) Gram-negative bacteremia Is this a current diagnosis for this admission?: Yes Plan: Currently his blood culture is growing E. coli. It is pansensitive to multiple antibiotics. Currently he is on ceftriaxone 2 g IV daily. At this point, he has not had an there is reaction to ceftriaxone. Because his mental status is not quite back to baseline, I will continue ceftriaxone for now. (6) Prostate cancer metastatic to bone Is this a current diagnosis for this admission?: Yes (7) Sepsis Is this a current diagnosis for this admission?: Yes Plan: Secondary to E. coli urinary tract infection. Continue ceftriaxone 2 g IV daily (8) Urinary tract infection Qualifiers: Urinary tract infection type: acute cystitis Hematuria presence: with hematuria Qualified Code(s): N30.01 - Acute cystitis with hematuria Is this a current diagnosis for this admission?: Yes Plan: Continue ceftriaxone 2 g IV daily. Today is antibiotic day #3 (9) Hypokalemia Is this a current diagnosis for this admission?: Yes Plan: KCl 40 mEq by mouth Q6Hr x2. repeat BMP in a.m. (10) Thrombocytopenia Is this a current diagnosis for this admission?: Yes Plan: Perhaps due to sepsis. No signs of bleeding. Continue to monitor for now. - Time Time Spent with patient: 25-34 minutes Medications reviewed and adjusted accordingly: Yes Anticipated discharge: Home with Homehealth, Hospice Within: within 48 hours - Inpatient Certification Based on my medical assessment, after consideration of the patient's comorbidities, presenting symptoms, or acuity I expect that the services needed warrant INPATIENT care.: Yes I certify that my determination is in accordance with my understanding of Medicare's requirements for reasonable and necessary INPATIENT services [42 CFR 412.3e].: Yes Medical Necessity: Need For Continuous Telemetry Monitoring, Need for IV Antibiotics
[2017-06-25] MEDS: POTASSIUM CHLORIDE 10 MEQ TABLET.SA PO SCH ×2 (11:30→17:16)
--- NOTE | 2017-06-25 12:43 | Physician Advisory Note ---
Physician Advisor ProgressNote .: Pursuant to the plan for [facility], I have reviewed the medical record for this patient. Physician Advisor Statement: Please consider documentin. "Sepsis, due to E.coli UTI, present on admission" 2. Please list Principal Dx (the one that made pt need to come in) as Dx #1 in all notes. Thanks! MD Debo [phone]
[2017-06-25] MEDS: LORAZEPAM INJ 2 MG/1 ML VIAL IV PRN (23:01)
[2017-06-26] MEDS: HEPARIN SOD (PORCINE) 5,000 UNIT/ML 1 ML SYRINGE SUBCUT SCH ×3 (05:42→21:21)
[2017-06-26 06:30] LABS: HEMATOCRIT 25.4 % (37.9-51.0); HEMOGLOBIN 8.1 g/dL (13.5-17.0); HGB HCT DIFFERENCE -1.1; MEAN CORPUSCULAR HEMOGLOBIN 26.9 pg (27.0-33.4); MEAN CORPUSCULAR HGB CONC 31.9 g/dL (32.0-36.0); MEAN CORPUSCULAR VOLUME 84 fl (80-97); RED BLOOD COUNT 3.01 10^6/uL (4.35-5.55); WHITE BLOOD COUNT 7.1 10^3/uL (4.0-10.5)
[2017-06-26 06:44] LABS: ANION GAP 13 (5-19); BLOOD UREA NITROGEN 9 mg/dL (7-20); CALCIUM 8.4 mg/dL (8.4-10.2); CARBON DIOXIDE 19 mmol/L (22-30); CHLORIDE 110 mmol/L (98-107); CREATININE RESULT 0.74 mg/dL (0.52-1.25); GLUCOSE 72 mg/dL (75-110); POTASSIUM 4.1 mmol/L (3.6-5.0); SODIUM 141.6 mmol/L (137-145)
[2017-06-26] MEDS: DOCUSATE SODIUM 100 MG CAPSULE PO SCH ×2 (09:48→17:16)
[2017-06-26] MEDS: ARIPIPRAZOLE 5 MG TABLET PO SCH (09:49)
[2017-06-26] MEDS: CARVEDILOL 6.25 MG TABLET PO SCH ×2 (09:50→21:20)
[2017-06-26] MEDS: CEFTRIAXONE 2 GM/D5W RTU 2 GM/50 ML RTUPB IV SCH (09:50)
[2017-06-26] MEDS: LEVOTHYROXINE SODIUM 0.025 MG TABLET PO SCH (09:50)
[2017-06-26] MEDS: POLYETHYLENE GLYCOL 3350 POWDER 17 GM/1 PACKET PO SCH (09:50)
[2017-06-26] MEDS: LORAZEPAM INJ 2 MG/1 ML VIAL IV PRN (14:24)
--- NOTE | 2017-06-26 15:33 | PDOC PROGRESS REPORT ---
Subjective Progress Note for:: 06/26/17 Subjective:: The patient is a 77-year-old -[place] gentleman with known metastatic prostate cancer. He has been residing at home with his and has been on hospice services. His oncologist is Dr. Jones. He presented to the emergency room June 23, 2017 with a several day history of altered mental status. The patient did become quite combative at home. His brought him to the hospital at the advice of hospice as she could not manage him at home. In the emergency room the patient was found to have a septic picture with hypotension, tachycardia, encephalopathy and evidence of a urinary tract infection. The emergency room physician gave him 1 dose of 1 g of Rocephin. Hospital day number 1, 1 of 2 of the patient's blood cultures was positive for gram-negative rods. His Rocephin dose was increased to 2 g daily. His urine cultures are growing E. coli. Blood culture is also growing E. coli, pansensitive. Today, the patient has had increasing agitation. Apparently, this started earlier this morning around the change of shift. The nurse reported that some students were attempting to give the patient his medications and he became very agitated. The nurse thinks that there was too much stimulation with the number of people in the room at that time. However, the nurse also reports that the patient was belligerent with her and threatening. Physical Exam Vital Signs: Temp Pulse Resp BP Pulse Ox 97.7 F 75 18 147/63 H 99 06/26/17 11:19 06/26/17 14:00 06/26/17 11:19 06/26/17 11:19 06/26/17 11:19 Intake & Output 06/25/17 06/26/17 06/27/17 06:59 06:59 06:59 Intake Total 2911 2405 50 Balance 2911 2405 50 Weight 74.83 kg General appearance: PRESENT: no acute distress Head exam: PRESENT: atraumatic Respiratory exam: PRESENT: clear to auscultation stone Cardiovascular exam: PRESENT: RRR GI/Abdominal exam: PRESENT: normal bowel sounds, soft Rectal exam: PRESENT: deferred Additional comments: The patient had just received a sedative. He had just fallen asleep. I did not wake up the patient based on the agitation that he has been displaying today. His skin was warm dry and intact. I did not appreciate any lesions or rashes. The extremities were without edema. Results Laboratory Results: 06/26/17 05:37 06/26/17 05:37 06/26/17 06/26/17 05:37 05:37 WBC 7.1 RBC 3.01 L Hgb 8.1 L Hct 25.4 L MCV 84 MCH 26.9 L MCHC 31.9 L RDW 24.0 H Plt Count 127 L Sodium 141.6 Potassium 4.1 Chloride 110 H Carbon Dioxide 19 L Anion Gap 13 BUN 9 Creatinine 0.74 Est GFR ( Amer) > 60 Est GFR (Non-Af Amer) > 60 Glucose 72 L Calcium 8.4 Impressions: Chest X-Ray 06/22/17 19:41 IMPRESSION: No acute findings. Extensive bony metastatic disease. Head CT 06/22/17 19:41 IMPRESSION: No acute intracranial process. Bony metastatic disease. Extensive acute and chronic sinus disease sparing the maxillary sinuses. Assessment & Plan - Diagnosis (1) Sepsis Is this a current diagnosis for this admission?: Yes Plan: The patient presented with sepsis from a urinary tract infection. Sepsis was present on admission. Today is antibiotic day #4 with 2 g of Rocephin daily. (2) Acute kidney injury Is this a current diagnosis for this admission?: Yes Plan: Likely associated with critical illness and volume status upon admission. Resolved. (3) Atrial fibrillation with rapid ventricular response Is this a current diagnosis for this admission?: Yes Plan: The patient converted to sinus rhythm after receiving metoprolol in the emergency department. Will continue on telemetry monitoring. (4) Encephalopathy acute Is this a current diagnosis for this admission?: Yes Plan: This is likely from underlying sepsis and infection. However, the patient does have metastatic prostate cancer. We have to be aware that he could have additional metastases to the brain. At this point time I do not think that pursuing a diagnostic workup would be of benefit because it will not frame changer. At this point time the biggest problem is disposition. The cannot take care of the patient at home because he is belligerent and taking him home right now would risk his health and her health. We are trying to get additional services for home. If the patient does improve and becomes more appropriate we will discharge him back to hospice. He may require inpatient hospice. (5) Gram-negative bacteremia Is this a current diagnosis for this admission?: Yes Plan: Continue Rocephin. Today is day #4. Patient will require 10 days of antibiotics. (6) Thrombocytopenia Is this a current diagnosis for this admission?: Yes (7) Urinary tract infection Qualifiers: Urinary tract infection type: acute cystitis Hematuria presence: with hematuria Qualified Code(s): N30.01 - Acute cystitis with hematuria Is this a current diagnosis for this admission?: Yes Plan: Plan is as above under sepsis and bacteremia. - Time Time Spent with patient: 25-34 minutes Critical Time spent with patient: 25-34 minutes - Inpatient Certification Medical Necessity: Need Close Monitoring Due to Risk of Patient Decompensation, Need for IV Antibiotics, Risk of Complication if Not Cared For in Hospital
[2017-06-27] MEDS: HEPARIN SOD (PORCINE) 5,000 UNIT/ML 1 ML SYRINGE SUBCUT SCH ×3 (05:27→22:16)
--- NOTE | 2017-06-27 08:52 | PDOC PROGRESS REPORT ---
Subjective Progress Note for:: 06/27/17 Subjective:: The patient is a 77-year-old -[place] gentleman with known metastatic prostate cancer. He has been residing at home with his and has been on hospice services. His oncologist is Dr. Jones. He presented to the emergency room June 23, 2017 with a several day history of altered mental status. The patient did become quite combative at home. His brought him to the hospital at the advice of hospice as she could not manage him at home. In the emergency room the patient was found to have a septic picture with hypotension, tachycardia, encephalopathy and evidence of a urinary tract infection. The emergency room physician gave him 1 dose of 1 g of Rocephin. Hospital day number 1, 1 of 2 of the patient's blood cultures was positive for gram-negative rods. His Rocephin dose was increased to 2 g daily. His urine cultures are growing E. coli. Blood culture is also growing E. coli, pansensitive. On Jun 26, 2017 the patient had increasing agitation. Apparently, this started early in the morning around the change of shift. The nurse reported that some students were attempting to give the patient his medications and he became very agitated. The nurse thinks that there was too much stimulation with the number of people in the room at that time. However, the nurse also reports that the patient was belligerent with her and threatening. This morning, the patient was sleeping but arousable. I was unable to assess a full review of systems but he did not appear to be agitated. He was not answering questions appropriately, however. Physical Exam Vital Signs: Temp Pulse Resp BP Pulse Ox 98.6 F 70 20 157/62 H 98 06/27/17 07:40 06/27/17 07:40 06/27/17 07:40 06/27/17 07:40 06/27/17 07:40 Intake & Output 06/26/17 06/27/17 06/28/17 06:59 06:59 06:59 Intake Total 2405 842 Balance 2405 842 Weight 74.83 kg 76.7 kg General appearance: PRESENT: no acute distress Head exam: PRESENT: atraumatic Eye exam: PRESENT: EOMI Mouth exam: PRESENT: moist Respiratory exam: PRESENT: clear to auscultation stone, unlabored Cardiovascular exam: PRESENT: RRR GI/Abdominal exam: PRESENT: normal bowel sounds, soft Rectal exam: PRESENT: deferred Musculoskeletal exam: PRESENT: full ROM Skin exam: PRESENT: intact, warm Results Laboratory Results: 06/26/17 05:37 06/26/17 05:37 Impressions: Chest X-Ray 06/22/17 19:41 IMPRESSION: No acute findings. Extensive bony metastatic disease. Head CT 06/22/17 19:41 IMPRESSION: No acute intracranial process. Bony metastatic disease. Extensive acute and chronic sinus disease sparing the maxillary sinuses. Assessment & Plan - Diagnosis (1) Sepsis Is this a current diagnosis for this admission?: Yes Plan: The patient presented with sepsis from a urinary tract infection. Sepsis was present on admission. Today is antibiotic day #5 with 2 g of Rocephin daily. (2) Acute kidney injury Is this a current diagnosis for this admission?: Yes Plan: Likely associated with critical illness and volume status upon admission. Resolved. (3) Atrial fibrillation with rapid ventricular response Is this a current diagnosis for this admission?: Yes Plan: The patient converted to sinus rhythm after receiving metoprolol in the emergency department. Will continue on telemetry monitoring. (4) Encephalopathy acute Is this a current diagnosis for this admission?: Yes Plan: This is likely from underlying sepsis and infection. However, the patient does have metastatic prostate cancer. We have to be aware that he could have additional metastases to the brain. At this point time I do not think that pursuing a diagnostic workup would be of benefit because it will not oil change technician. At this point time the biggest problem is disposition. The cannot take care of the patient at home because he is belligerent and taking him home right now would risk his health and her health. We are trying to get additional services for home. If the patient does improve and becomes more appropriate we will discharge him back to hospice. He may require inpatient hospice, however, this could place an additional large burden on the family as this service is not provided in [place]. (5) Gram-negative bacteremia Is this a current diagnosis for this admission?: Yes Plan: Continue Rocephin. Today is day #5. Patient will require 10 days of antibiotics. (6) Thrombocytopenia Is this a current diagnosis for this admission?: Yes Plan: Stable. Platelet count was checked yesterday and was noted to be 127k. (7) Urinary tract infection Qualifiers: Urinary tract infection type: acute cystitis Hematuria presence: with hematuria Qualified Code(s): N30.01 - Acute cystitis with hematuria Is this a current diagnosis for this admission?: Yes Plan: Plan is as above under sepsis and bacteremia. - Time Time Spent with patient: 15-24 minutes - Inpatient Certification Medical Necessity: Significant Comorbidiites Make Outpatient Treatment Too Risky , Need Close Monitoring Due to Risk of Patient Decompensation, Need for IV Antibiotics, Risk of Complication if Not Cared For in Hospital
[2017-06-27] MEDS: CEFTRIAXONE 2 GM/D5W RTU 2 GM/50 ML RTUPB IV SCH (11:45)
[2017-06-27] MEDS: ARIPIPRAZOLE 5 MG TABLET PO SCH (11:46)
[2017-06-27] MEDS: CARVEDILOL 6.25 MG TABLET PO SCH ×2 (11:46→22:04)
[2017-06-27] MEDS: LEVOTHYROXINE SODIUM 0.025 MG TABLET PO SCH (11:47)
[2017-06-27] MEDS: POLYETHYLENE GLYCOL 3350 POWDER 17 GM/1 PACKET PO SCH (11:47)
[2017-06-27] MEDS: DOCUSATE SODIUM 100 MG CAPSULE PO SCH ×2 (11:47→17:05)
[2017-06-28] MEDS: ACETAMINOPHEN 325 MG TABLET PO PRN ×2 (03:04→06:53)
[2017-06-28] MEDS: HEPARIN SOD (PORCINE) 5,000 UNIT/ML 1 ML SYRINGE SUBCUT SCH (05:15)
[2017-06-28 06:24] LABS: ANION GAP 10 (5-19); BLOOD UREA NITROGEN 7 mg/dL (7-20); CARBON DIOXIDE 22 mmol/L (22-30); CHLORIDE 109 mmol/L (98-107); CREATININE RESULT 0.67 mg/dL (0.52-1.25); GLUCOSE 116 mg/dL (75-110); POTASSIUM 3.4 mmol/L (3.6-5.0); SODIUM 140.7 mmol/L (137-145)
[2017-06-28] MEDS: POLYETHYLENE GLYCOL 3350 POWDER 17 GM/1 PACKET PO SCH (10:06)
[2017-06-28] MEDS: CARVEDILOL 6.25 MG TABLET PO SCH (10:06)
[2017-06-28] MEDS: DOCUSATE SODIUM 100 MG CAPSULE PO SCH (10:06)
[2017-06-28] MEDS: ARIPIPRAZOLE 5 MG TABLET PO SCH (10:06)
[2017-06-28] MEDS: LEVOTHYROXINE SODIUM 0.025 MG TABLET PO SCH (10:06)
[2017-06-28] MEDS: CEFTRIAXONE 2 GM/D5W RTU 2 GM/50 ML RTUPB IV SCH (10:07)
--- NOTE | 2017-06-28 12:31 | PDOC DISCHARGE SUMMARY ---
General - Admit/Disc Date/PCP Admission Date/Primary Care Provider: 06/23/17 15:54 ANAND HAROLDO Discharge Date: 06/28/17 - Discharge Diagnosis (1) Sepsis Is this a current diagnosis for this admission?: Yes (2) Acute kidney injury Is this a current diagnosis for this admission?: Yes (3) Atrial fibrillation with rapid ventricular response Is this a current diagnosis for this admission?: Yes (4) Encephalopathy acute Is this a current diagnosis for this admission?: Yes (5) Gram-negative bacteremia Is this a current diagnosis for this admission?: Yes (6) Thrombocytopenia Is this a current diagnosis for this admission?: Yes (7) Urinary tract infection Is this a current diagnosis for this admission?: Yes - Additional Information Resuscitation Status: Full Code Discharge Diet: As Tolerated Discharge Activity: Activity As Tolerated Home Medications: Carvedilol [Coreg 6.25 mg Tablet] 6.25 mg PO Q12 06/23/17 Levothyroxine Sodium [Synthroid 0.025 mg Tablet] 25 mcg PO QAM 06/23/17 Oxycodone HCl/Acetaminophen [Percocet 7.5-325 mg Tablet] 1 each PO Q6HP PRN Amox Tr/Potassium Clavulanate [Augmentin "500" Tablet] 1 tab PO MEALS 7 Days tablet 06/28/17 Aripiprazole [Abilify 5 mg Tablet] 5 mg PO DAILY 30 Days tablet 06/28/17 History of Present Illness History of Present Illness: ELIEZER VERA is a 77 year old male with a past medical history of prostate cancer with widespread metastasis receiving home hospice care who became agitated and hostile with caregivers. EMS was called administrating 5 mg of Haldol IM resulting in sedation. He was brought to the emergency room for evaluation. His blood pressure is 80 systolic in A. fib with RVR. and is unable to provide history and his resends hospice and CODE STATUS. He receives a bolus of normal saline and started on IV Cardizem and referred to the hospitalist for admission. Family stated he has denied pain but complained of constipation prior to agitation. Hospice caregiver is Yenifer at [phone], patient's oncologist Dr. Jones. Patient's [place] [phone]. Hospital Course Hospital Course: In the emergency room the patient was found to have a septic picture with hypotension, tachycardia, encephalopathy and evidence of a urinary tract infection. The emergency room physician gave him 1 dose of 1 g of Rocephin. The patient was in atrial fibrillation with rapid ventricular response while in the emergency department. He received 1 dose of metoprolol and converted back to sinus rhythm. He was monitored on telemetry this hospitalization without further incidents. Hospital day number 1, 1 of 2 of the patient's blood cultures was positive for gram-negative rods. His Rocephin dose was increased to 2 g daily. His urine cultures are growing E. coli. Blood culture is also growing E. coli, pansensitive. Patient did have some belligerent behavior and agitation during this hospitalization. For this he was started on Abilify. This has been of questionable benefit. He may be improving because of the antibiotics and clearing his sepsis. The patient is stable today. His mental status appears back to baseline. He will be switched to oral antibiotics. We will continue the Abilify at discharge. He did require mild potassium supplementation this admission but now that he is eating better this should not be required upon discharge. He will be discharged back to home with hospice. Physical Exam Vital Signs: Temp Pulse Resp BP Pulse Ox 98.7 F 75 16 136/76 H 100 06/28/17 11:32 06/28/17 11:32 06/28/17 11:32 06/28/17 11:32 06/28/17 11:32 Intake & Output 06/27/17 06/28/17 06/29/17 06:59 06:59 06:59 Intake Total 842 757 Balance 842 757 Weight 76.7 kg 76.7 kg General appearance: PRESENT: no acute distress Head exam: PRESENT: atraumatic Eye exam: PRESENT: EOMI Mouth exam: PRESENT: neck supple Respiratory exam: PRESENT: clear to auscultation stone, unlabored Cardiovascular exam: PRESENT: RRR GI/Abdominal exam: PRESENT: normal bowel sounds, soft Rectal exam: PRESENT: deferred Musculoskeletal exam: PRESENT: full ROM - The patient is awake and conversant. He is quite hard of hearing. I cannot fully assess his mental status. He is calm, cooperative and smiling. Results Laboratory Results: 06/26/17 05:37 06/28/17 05:55 06/28/17 05:55 Sodium 140.7 Potassium 3.4 L Chloride 109 H Carbon Dioxide 22 Anion Gap 10 BUN 7 Creatinine 0.67 Est GFR ( Amer) > 60 Est GFR (Non-Af Amer) > 60 Glucose 116 H Calcium 8.0 L Impressions: Chest X-Ray 06/22/17 19:41 IMPRESSION: No acute findings. Extensive bony metastatic disease. Head CT 06/22/17 19:41 IMPRESSION: No acute intracranial process. Bony metastatic disease. Extensive acute and chronic sinus disease sparing the maxillary sinuses. Plan Discharge Plan: The patient will be discharged home. He will complete another week of oral antibiotics. I would like to avoid fluoroquinolones due to their potential for aggravating or causing mental status changes. He will therefore receive amoxicillin with clavulanate. Again, we will continue the Abilify for now. I will leave this up to the hospice providers to determine if they want to continue this medication.
--- NOTE | 2017-06-28 12:32 | Progress Note ---
Provider Note Provider Note: The patient is discharged today required approximately 40 minutes.
[2017-06-28 12:38] VITALS: BP 119/57
[2017-06-28] MEDS ORDERED: POTASSIUM CHLORIDE 10 MEQ TABLET.SA PO ONE (12:45)
[2017-06-28] MEDS ORDERED: AMOXICILLIN TR/POT CLAVULANATE 500-125 MG TAB PO SCH (17:00)
== END 2017-06-28 13:48 | disposition hospice, home (50) | DRG 871 ==
LOC: ER 18:34 → EH 22:52 → UNDOADMOB 23:45 → INTOOBSV 23:45 → 3W 06-23 01:10 → OBSVTOIN 06-23 15:54 → 5 06-27 14:06
PROVIDERS: ADMIT Internal Medicine; ATTEND Internal Medicine
DX: A41.51 Sepsis due to Escherichia coli [E. coli] (principal); G93.41 Metabolic encephalopathy; N17.9 Acute kidney failure, unspecified; C79.51 Secondary malignant neoplasm of bone; N30.01 Acute cystitis with hematuria; B96.20 Unspecified Escherichia coli [E. coli] as the cause of diseases classified elsewhere; I48.91 Unspecified atrial fibrillation; E83.41 Hypermagnesemia; E83.39 Other disorders of phosphorus metabolism; I10 Essential (primary) hypertension; K59.09 Other constipation; D64.9 Anemia, unspecified; D69.6 Thrombocytopenia, unspecified; Z79.899 Other long term (current) drug therapy; Z85.46 Personal history of malignant neoplasm of prostate
CPT/HCPCS: 36415; 70450; 71010; 80048; 80053; 81001; 82272; 82803; 82962; 83605; 83735; 83880; 84100; 84439; 84443; 84484; 85025; 85027; 85610; 87040; 87077; 87086; 87088; 87186; 93005; 93010; 96361; 96365; 99291; 99292; G0378; J0696; J1644; J2060; J3490; J7030

== ENCOUNTER 2017-07-06 05:17 | Inpatient (IN) | payer MEDICARE, OTHER ==
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
--- NOTE | 2017-07-06 07:09 | RADIOLOGY REPORT (SQ) ---
EXAM DESCRIPTION: KUB/ABDOMEN (SINGLE VIEW) COMPLETED DATE/TIME: 07/06/2017 6:42 am REASON FOR STUDY: Hx metastatic prostate ca; no BM 11 days COMPARISON: CT, 10/02/2016. NUMBER OF VIEWS: One view. TECHNIQUE: Supine radiographic image of the abdomen acquired. LIMITATIONS: None. FINDINGS: BOWEL GAS PATTERN: Normal bowel gas pattern. No dilated loops. CALCIFICATIONS: No suspicious calcifications. SOFT TISSUES: No gross mass or suggestion of organomegaly. HARDWARE: None in the abdomen. BONES: Extensive sclerotic lesions throughout the visualized skeleton consistent with known metastati c prostate cancer. OTHER: No other significant finding. IMPRESSION: Known bony metastatic disease with history of prostate cancer. No acute intra-abdominal findings. TECHNICAL DOCUMENTATION: JOB ID: [id number] [employer]- All Rights Reserved
[2017-07-06 08:58] LABS: HEMATOCRIT 23.6 % (37.9-51.0); MEAN CORPUSCULAR HEMOGLOBIN 26.2 pg (27.0-33.4); MEAN CORPUSCULAR HGB CONC 30.5 g/dL (32.0-36.0); MEAN CORPUSCULAR VOLUME 86 fl (80-97); RED BLOOD COUNT 2.75 10^6/uL (4.35-5.55); RED CELL DISTRIBUTION WIDTH 24.8 % (11.5-14.0); WHITE BLOOD COUNT 5.3 10^3/uL (4.0-10.5)
[2017-07-06 09:22] LABS: ANION GAP 13 (5-19); BLOOD UREA NITROGEN 31 mg/dL (7-20); CALCIUM 8.5 mg/dL (8.4-10.2); CARBON DIOXIDE 22 mmol/L (22-30); CHLORIDE 117 mmol/L (98-107); CREATININE RESULT 1.17 mg/dL (0.52-1.25); GLUCOSE 82 mg/dL (75-110); SODIUM 152.1 mmol/L (137-145)
--- NOTE | 2017-07-06 09:47 | RADIOLOGY REPORT (SQ) ---
EXAM DESCRIPTION: CT HEAD WITHOUT COMPLETED DATE/TIME: 07/06/2017 9:17 am REASON FOR STUDY: AMS COMPARISON: CT brain 06/02/2017 CT angio chest 10/08/2015 CT chest abdomen pelvis 10/02/2016 Bone survey 10/07/2016 TECHNIQUE: Axial images acquired through the brain without intravenous contrast. Images reviewed wi th bone, brain and subdural windows. Images stored on PACS. All CT scanners at this facility use dose modulation, iterative reconstruction, and/or weight based d osing when appropriate to reduce radiation dose to as low as reasonably achievable (ALARA). [facility]: Dose Right [facility]: CareDose [facility]: Dose Right [facility]: Teradose 4D [facility]: Smart [place] RADIATION DOSE: Up-to-date CT equipment and radiation dose reduction techniques were employed. CTDIv ol: 64.6 mGy. DLP: 1809 mGy-cm. mGy. LIMITATIONS: Motion artifact, patient was scanned twice FINDINGS: VENTRICLES: Normal size and contour. CEREBRUM: No masses. No hemorrhage. No midline shift. No evidence for acute infarction. Normal gra y/white matter differentiation. No areas of low density in the white matter. CEREBELLUM: No masses. No hemorrhage. No alteration of density. No evidence for acute infarction. EXTRAAXIAL SPACES: Benign dense calcification in the anterior falx, stable ORBITS AND GLOBE: No intra- or extraconal masses. Normal contour of globe without masses. CALVARIUM: Diffuse sclerosis from patient's known metastatic prostate malignancy PARANASAL SINUSES: Fluid and debris in the sphenoid sinus. Mucous membrane thickening and fluid in t he left ethmoid and left frontal sinus. Fluid in the bilateral mastoid air cells. SOFT TISSUES: No mass or hematoma. OTHER: No other significant finding. IMPRESSION: No acute brain parenchymal changes. Inflammatory changes in the left sphenoid, ethmoid, and frontal sinuses. Fluid in the bilateral ethm oid air cells. COMMENT: Quality ID # [id number]: Final reports with documentation of one or more dose reduction techniques (e.g., Automated exposure control, adjustment of the mA and/or kV according to patient size, use of iterative reconstruction technique) TECHNICAL DOCUMENTATION: JOB ID: [id number] [employer]- All Rights Reserved
[2017-07-06 09:56] LABS: HEMOGLOBIN 7.2 g/dL (13.5-17.0)
[2017-07-06 10:06] LABS: BASOPHILS % (MANUAL) 0 % (0-2); EOSINOPHILS % (MANUAL) 0 % (0-6); LYMPHOCYTES % (MANUAL) 30 % (13-45); NUCLEATED RED BLOOD CELLS 1 /100 WBC (0); TOTAL CELLS COUNTED 100
[2017-07-06 10:08] LABS: ANISOCYTOSIS 3+; HYPOCHROMASIA 1+; OVALOCYTES SLIGHT; TOXIC GRANULATION 1+
[2017-07-06 10:08] LABS: APPEARANCE,URINE SLIGHTLY-CLOUDY; BILIRUBIN,URINE NEGATIVE (NEGATIVE); GLUCOSE, URINE NEGATIVE (NEGATIVE); KETONES,URINE TRACE mg/dL (NEGATIVE); LEUKOCYTE ESTERASE,URINE NEGATIVE (NEGATIVE); NITRITE,URINE NEGATIVE (NEGATIVE); PROTEIN,URINE NEGATIVE (NEGATIVE); URINE SPECIFIC GRAVITY 1.014; UROBILINOGEN,URINE NEGATIVE mg/dL (<2.0)
[2017-07-06 10:09] LABS: POIKILOCYTOSIS 1+; TEAR DROP CELLS SLIGHT
[2017-07-06 11:12] LABS: PROTHROMBIN TIME 18.2 SEC (11.4-15.4)
[2017-07-06 11:23] LABS: ALANINE AMINOTRANSFERASE 18 U/L (21-72); ALBUMIN 2.9 g/dL (3.5-5.0); ALKALINE PHOSPHATASE 631 U/L (38-126); ASPARTATE AMINO TRANSFERASE 30 U/L (17-59); BILIRUBIN,DIRECT 0.5 mg/dL (0.0-0.4); BILIRUBIN,TOTAL 0.6 mg/dL (0.2-1.3)
[2017-07-06] MEDS ORDERED: LACTULOSE SYRUP 20 GM/30 ML UDCUP PO ONE (11:55)
[2017-07-06] MEDS ORDERED: ONDANSETRON 4 MG TAB.RAPDIS PO PRN (14:10)
[2017-07-06] MEDS ORDERED: (PENDING PHARMACY ID) (Oxycodone Hcl/Acetaminophen [Percocet 7.5-325 Mg Tablet] 1 EACH) PO PRN (16:55)
[2017-07-06] MEDS ORDERED: OXYCODONE-ACETAMINOPHEN 5-325 MG TABLET PO PRN (17:00)
[2017-07-06] MEDS ORDERED: OXYCODONE HCL IR 5 MG TABLET PO PRN (17:01)
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
[2017-07-06] MEDS: LACTULOSE SYRUP 20 GM/30 ML UDCUP PO SCH ×2 (19:03→23:53)
[2017-07-06] MEDS: MORPHINE SULFATE SR 30 MG TABLET PO SCH (21:29)
[2017-07-06] MEDS: CARVEDILOL 6.25 MG TABLET PO SCH (21:29)
[2017-07-06] MEDS: HALOPERIDOL LACTATE INJ 5 MG/1 ML VIAL IV PRN (23:53)
[2017-07-07] MEDS: LACTULOSE SYRUP 20 GM/30 ML UDCUP PO SCH (05:38)
[2017-07-07 07:02] LABS: HEMATOCRIT 24.5 % (37.9-51.0); HGB HCT DIFFERENCE -1.1; MEAN CORPUSCULAR HEMOGLOBIN 26.9 pg (27.0-33.4); MEAN CORPUSCULAR HGB CONC 31.9 g/dL (32.0-36.0); MEAN CORPUSCULAR VOLUME 84 fl (80-97); RED CELL DISTRIBUTION WIDTH 24.9 % (11.5-14.0); WHITE BLOOD COUNT 4.8 10^3/uL (4.0-10.5)
[2017-07-07 07:18] LABS: ANION GAP 12 (5-19); BLOOD UREA NITROGEN 20 mg/dL (7-20); CALCIUM 8.8 mg/dL (8.4-10.2); CARBON DIOXIDE 22 mmol/L (22-30); CHLORIDE 119 mmol/L (98-107); CREATININE RESULT 0.94 mg/dL (0.52-1.25); GLUCOSE 94 mg/dL (75-110); MAGNESIUM 2.1 mg/dL (1.6-2.3); POTASSIUM 3.5 mmol/L (3.6-5.0)
[2017-07-07 07:25] LABS: BAND NEUTROPHILS % (MANUAL) 1 % (3-5); BASOPHILS % (MANUAL) 0 % (0-2); EOSINOPHILS % (MANUAL) 0 % (0-6); LYMPHOCYTES % (MANUAL) 29 % (13-45); NUCLEATED RED BLOOD CELLS 3 /100 WBC (0); TOTAL CELLS COUNTED 100
[2017-07-07 07:30] LABS: ANISOCYTOSIS 3+; HYPOCHROMASIA SLIGHT; POLYCHROMASIA SLIGHT; TARGET CELLS SLIGHT; TEAR DROP CELLS SLIGHT
[2017-07-07 07:34] LABS: HEMOGLOBIN 7.8 g/dL (13.5-17.0)
[2017-07-07] MEDS ORDERED: LEVOTHYROXINE SODIUM 0.025 MG TABLET PO SCH (08:00)
[2017-07-07] MEDS ORDERED: ENOXAPARIN SODIUM INJ 40 MG/0.4 ML DISP.SYRIN SUBCUT SCH (10:00)
[2017-07-07] MEDS ORDERED: ARIPIPRAZOLE 5 MG TABLET PO SCH (10:00)
[2017-07-07] MEDS: MORPHINE SULFATE SR 30 MG TABLET PO SCH ×2 (10:43→22:06)
[2017-07-07] MEDS: CARVEDILOL 6.25 MG TABLET PO SCH ×2 (10:44→22:06)
[2017-07-07] MEDS: HALOPERIDOL LACTATE INJ 5 MG/1 ML VIAL IV PRN (13:18)
--- NOTE | 2017-07-07 13:18 | Physician Advisory Note ---
Physician Advisor ProgressNote .: Pursuant to the plan for [facility], I have reviewed the medical record for this patient. Physician Advisor Statement: Please consider documentin. "Acute Hypernatremia, likely due to " [intravascular volume depletion ? poor po intake related to CA? ...] - if this is going to be addressed in this Hospice case 2. Medical Necessity: Please be sure to make explicit why he can't go home today. Status: AMS/acute delirium/combative behavior is reasonable for Obs status initially, while trying tx.s to resolve the acute issue, since these cases often are improved enough for d/c the next day. However, after 1MN of hospital care, this Medicare pt appears to still be not back to baseline mental status, still w/high ammonia level and not adequately responding to lactulose per stool output information, still hypernatremic. Attending has ordered repeat labs, and abd CT, & will be documenting supporting details today. Will support Inpt status with expectation of clear documentation of why pt isn't sufficiently improved for safe d/c today. Thanks! CK
--- NOTE | 2017-07-07 15:44 | RADIOLOGY REPORT (SQ) ---
EXAM DESCRIPTION: CT ABD/PELVIS WITH IV ONLY COMPLETED DATE/TIME: 07/07/2017 3:16 pm REASON FOR STUDY: rule out liver mets, diffusely met prostate ca COMPARISON: 10/02/2016 TECHNIQUE: CT scan of the abdomen and pelvis performed using helical scanning technique with dynamic intravenous contrast injection. No oral contrast. Images reviewed with lung, soft tissue, and bone windows. Reconstructed coronal and sagittal MPR images reviewed. Delayed images for evaluation of the urinary system also acquired. All images stored on PACS. All CT scanners at this facility use dose modulation, iterative reconstruction, and/or weight based d osing when appropriate to reduce radiation dose to as low as reasonably achievable (ALARA). [facility]: Dose Right [facility]: CareDose [facility]: Dose Right [facility]: Teradose 4D [facility]: [employer] CONTRAST TYPE AND DOSE: contrast/concentration: Isovue 370.00 mg/ml; Total Contrast Delivered: 77.0 ml; Total Saline Delivered: 23.5 ml RENAL FUNCTION: BUN 20 creatinine 1.0 RADIATION DOSE: Up-to-date CT equipment and radiation dose reduction techniques were employed. CTDIv ol: 7.5 - 8.8 mGy. DLP: 900 mGy-cm.. LIMITATIONS: Motion. Positioning. FINDINGS: LOWER CHEST: Cardiomegaly. Trace pleural effusions. LIVER: Normal size. No masses. No dilated ducts. SPLEEN: Normal size. No focal lesions. PANCREAS: No masses. No significant calcifications. No adjacent inflammation or peripancreatic fluid collections. Pancreatic duct not dilated. GALLBLADDER: No identified stones by CT criteria. No inflammatory changes to suggest cholecystitis. ADRENAL GLANDS: New 2.5 cm left adrenal nodule. RIGHT KIDNEY AND URETER: No solid masses. No significant calcifications. No hydronephrosis or hyd roureter. LEFT KIDNEY AND URETER: No solid masses. No significant calcifications. No hydronephrosis or hydr oureter. AORTA AND VESSELS: No aneurysm. RETROPERITONEUM: No retroperitoneal adenopathy, hemorrhage or masses. BOWEL AND PERITONEAL CAVITY: No masses or inflammatory changes. No free fluid or peritoneal masses. APPENDIX: Not visualized. PELVIS: No mass. No free fluid. Normal bladder. ABDOMINAL WALL: Ventral hernia containing fat. BONES: Diffuse sclerotic bone lesions. No pathologic fracture. OTHER: No other significant finding. IMPRESSION: 1. New left adrenal nodule. 2. No evidence of liver metastasis. 3. Skeletal metastasis. TECHNICAL DOCUMENTATION: JOB ID: [id number] Quality ID # [id number]: Final reports with documentation of one or more dose reduction techniques (e.g., Au tomated exposure control, adjustment of the mA and/or kV according to patient size, use of iterative reconstruction technique) 2010 [employer]- All Rights Reserved
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
[2017-07-07] MEDS ORDERED: LACTULOSE SYRUP 20 GM/30 ML UDCUP PO ONE (20:15)
[2017-07-07] MEDS ORDERED: OXYCODONE HCL IR 5 MG TABLET PO PRN (21:10)
[2017-07-07] MEDS ORDERED: OXYCODONE-ACETAMINOPHEN 5-325 MG TABLET PO PRN (21:10)
[2017-07-08] MEDS: LACTULOSE SYRUP 20 GM/30 ML UDCUP PO SCH ×5 (01:12→23:06)
[2017-07-08] MEDS: HALOPERIDOL LACTATE INJ 5 MG/1 ML VIAL IV PRN ×2 (05:27→22:57)
[2017-07-08 08:26] LABS: HEMATOCRIT 27.2 % (37.9-51.0); HEMOGLOBIN 8.3 g/dL (13.5-17.0); HGB HCT DIFFERENCE -2.3; MEAN CORPUSCULAR HEMOGLOBIN 26.1 pg (27.0-33.4); MEAN CORPUSCULAR HGB CONC 30.4 g/dL (32.0-36.0); MEAN CORPUSCULAR VOLUME 86 fl (80-97); RED BLOOD COUNT 3.16 10^6/uL (4.35-5.55); RED CELL DISTRIBUTION WIDTH 24.9 % (11.5-14.0)
[2017-07-08 08:45] LABS: ALANINE AMINOTRANSFERASE 21 U/L (21-72); ALBUMIN 3.1 g/dL (3.5-5.0); ALKALINE PHOSPHATASE 743 U/L (38-126); ANION GAP 12 (5-19); ASPARTATE AMINO TRANSFERASE 29 U/L (17-59); BILIRUBIN,DIRECT 0.5 mg/dL (0.0-0.4); BILIRUBIN,TOTAL 0.7 mg/dL (0.2-1.3); BLOOD UREA NITROGEN 15 mg/dL (7-20); CALCIUM 8.7 mg/dL (8.4-10.2); CARBON DIOXIDE 22 mmol/L (22-30); CHLORIDE 118 mmol/L (98-107); CREATININE RESULT 0.91 mg/dL (0.52-1.25); GLUCOSE 74 mg/dL (75-110); POTASSIUM 3.2 mmol/L (3.6-5.0); SODIUM 151.8 mmol/L (137-145); TOTAL PROTEIN 6.5 g/dL (6.3-8.2)
[2017-07-08 08:46] LABS: BAND NEUTROPHILS % (MANUAL) 1 % (3-5); BASOPHILS % (MANUAL) 1 % (0-2); EOSINOPHILS % (MANUAL) 1 % (0-6); LYMPHOCYTES % (MANUAL) 26 % (13-45); NUCLEATED RED BLOOD CELLS 3 /100 WBC (0); TOTAL CELLS COUNTED 100
[2017-07-08 08:48] LABS: TOXIC GRANULATION SLIGHT; TOXIC VACUOLATION PRESENT
[2017-07-08 08:51] LABS: ANISOCYTOSIS 3+; HYPOCHROMASIA 1+; PLATELET CLUMPS PRESENT; POIKILOCYTOSIS SLIGHT; POLYCHROMASIA SLIGHT; TARGET CELLS SLIGHT; TEAR DROP CELLS SLIGHT
[2017-07-08] MEDS: LEVOTHYROXINE SODIUM 0.025 MG TABLET PO SCH (09:13)
[2017-07-08] MEDS: ARIPIPRAZOLE 5 MG TABLET PO SCH (09:13)
[2017-07-08] MEDS: MORPHINE SULFATE SR 30 MG TABLET PO SCH ×2 (09:14→21:53)
[2017-07-08] MEDS: CARVEDILOL 6.25 MG TABLET PO SCH ×2 (09:15→21:53)
[2017-07-08] MEDS: ENOXAPARIN SODIUM INJ 40 MG/0.4 ML DISP.SYRIN SUBCUT SCH (09:15)
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
[2017-07-09] MEDS ORDERED: LORAZEPAM INJ 2 MG/1 ML VIAL ONE (01:11)
[2017-07-09] MEDS ORDERED: LORAZEPAM INJ 2 MG/1 ML VIAL IV ONE (01:30)
[2017-07-09] MEDS: LACTULOSE SYRUP 20 GM/30 ML UDCUP PO SCH ×2 (05:08→11:31)
[2017-07-09] MEDS ORDERED: POTASSIUM CHLORIDE 10 MEQ TABLET.SA PO ONE (08:30)
[2017-07-09] MEDS: MORPHINE SULFATE SR 30 MG TABLET PO SCH (11:31)
[2017-07-09] MEDS: LEVOTHYROXINE SODIUM 0.025 MG TABLET PO SCH (11:31)
[2017-07-09] MEDS: ARIPIPRAZOLE 5 MG TABLET PO SCH (11:32)
[2017-07-09] MEDS: CARVEDILOL 6.25 MG TABLET PO SCH (11:32)
[2017-07-09] MEDS: ENOXAPARIN SODIUM INJ 40 MG/0.4 ML DISP.SYRIN SUBCUT SCH (11:47)
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
[2017-07-09 17:13] VITALS: BP 132/50
== END 2017-07-09 17:20 | disposition hospice, home (50) | DRG 441 ==
LOC: ER 05:17 → EH 13:14 → 4N 20:25 → UNDODISIN 07-07 14:59
DX: K72.00 Acute and subacute hepatic failure without coma (principal); G93.41 Metabolic encephalopathy; C79.51 Secondary malignant neoplasm of bone; E72.20 Disorder of urea cycle metabolism, unspecified; R44.3 Hallucinations, unspecified; E87.0 Hyperosmolality and hypernatremia; R41.0 Disorientation, unspecified; I10 Essential (primary) hypertension; C61 Malignant neoplasm of prostate; Z66 Do not resuscitate; K59.00 Constipation, unspecified; E03.9 Hypothyroidism, unspecified; F32.9 Major depressive disorder, single episode, unspecified; R46.89 Other symptoms and signs involving appearance and behavior; E87.6 Hypokalemia; D63.0 Anemia in neoplastic disease; Z88.6 Allergy status to analgesic agent; Z91.14 Patient's other noncompliance with medication regimen; Z82.49 Family history of ischemic heart disease and other diseases of the circulatory system
CPT/HCPCS: 36415; 70450; 74000; 74177; 80048; 80053; 80076; 81001; 82140; 83735; 85025; 85610; 99285; J1630; J2060